=== PATIENT | female | born 1965 | race Caucasian/White ===

== ENCOUNTER 2017-01-16 09:14 | Outpatient (CLI) ==
[2015-05-28 07:59] VITALS: BMI 33.6
--- NOTE | 2017-01-16 10:49 | DI ---
Examination: Three radiographic images of the right hand. Comparison: Right wrist radiographs performed on 05/24/2014. Reason for study: Pain. FINDINGS: No acute fracture or dislocation. The joint spaces are well maintained. No abnormal sof t tissue calcifications or retained foreign bodies. Arthritic changes are noted in the DIP joints. Impression: No acute fracture or dislocation in the right hand.
== END 2017-01-16 09:15 | disposition home or self-care (01) ==
LOC: RAD 09:14
PROVIDERS: ATTEND Nurse Practitioner Family
DX: M79.641 Pain in right hand (principal); T14.90 Injury, unspecified

== ENCOUNTER 2017-01-23 11:43 | Outpatient (CLI) ==
[2015-05-28 07:59] VITALS: BMI 33.6
--- NOTE | 2017-01-23 15:32 | MRI ---
EXAM: MRI of the right hand without contrast COMPARISON: Right hand radiographs 01/16/2017. HISTORY: Pain and stiffness involving the third digit. TECHNIQUE: Multiplanar noncontrast MR images of the right hand were acquired using a 1.5 Melanie magn et. FINDINGS: Cystic degenerative changes involving the second through fifth metacarpal heads which are most pronounced at the level of the third and fourth metacarpal heads. Moderate degenerative diaz es of the interphalangeal joints most pronounced at the distal interphalangeal joints. Chronic-appe aring erosions at the level of the head of the third middle phalanx and radial aspect of the neck of the second middle phalanx. Small degenerative cyst within the lunate along the margin of the scapho lunate interval. Trace joint effusions at the level of the hand and carpus. No evidence of an acut e fracture or osteomyelitis. No evidence of significant reactive marrow edema. There is low-level subcutaneous edema circumferentially throughout the hand and fingers which is mos t extensive involving the third finger without a focal soft tissue ulcer or drainable fluid collecti on. Lobulated region of abnormal signal measuring 2.7 x 1.7 x 0.6 cm within the subcutaneous tissue s along the palmar aspect of the middle and distal phalanges of the fourth digit extending along the palmar aspect of the distal interphalangeal joint. This region is isointense relative to skeletal muscle on the T1W and T2W images. This may represent a fibrous tumor/fibromatosis. Giant cell tumor is a differential consideration. Gouty tophus could also be considered in the appropriate clinical setting. Excision with pathologic correlation is recommended. There is tenosynovitis involving the flexor tendons of the third digit most pronounced at the level of the metacarpophalangeal joint with inflammation of the overlying soft tissues. No full-thickness tendon tear or tendon retraction. There is no significant bow stringing of the tendons. IMPRESSION: 1. Subcutaneous edema throughout the hand and fingers most pronounced at the level of the third dig it. This is nonspecific but may represent cellulitis without a drainable fluid collection or focal soft tissue ulcer. 2. Degenerative changes of the hand and wrist with most severe changes at the interphalangeal joint s. Chronic-appearing erosions at the level of the second and third distal interphalangeal joints an d a process such as gout could be considered. 3. Lobulated soft tissue mass within the subcutaneous tissues along the palmar aspect of the distal fourth finger. This could represent gouty tophus in the appropriate clinical setting with differen tial considerations including fibrous neoplasm/fibromatosis or giant cell tumor of the tendon sheath . Correlation with clinical history in addition to definitive characterization with sampling and pa thologic correlation is recommended. 4. Tenosynovitis involving the flexor tendons of the third digit without a full-thickness tendon te ar or tendon retraction.
== END 2017-01-23 11:44 | disposition home or self-care (01) ==
LOC: RAD 11:43
PROVIDERS: ATTEND Nurse Practitioner Family
DX: M79.641 Pain in right hand (principal); M25.9 Joint disorder, unspecified

== ENCOUNTER 2017-06-06 10:52 | Emergency (ER) ==
[2017-06-06 10:56] VITALS: BP 152/92; TEMP 98.2; BMI 32.8
--- NOTE | 2017-06-06 11:07 | ED.PDOC ---
General ED Provider: Dr. SHARMAINE WATTS JR Chief Complaint: Urinary Problem Stated Complaint: URINATED THIS AM AND WAS PAINFUL, DRIBBLING, FREQUENTL AND URGENCY. [ End ]98.2 67 18 965 152/92 BACK AND HIPS- chronic back pain and scoliosis Time Seen by Physician: 11:06 Mode of Arrival: Walk-In Information Source: Patient Exam Limitations: No limitations Primary Care Provider: ANTOINETTE MONSIVAIS Nursing and Triage Documentation Reviewed and Agree: No Review of Systems - Review Of Systems Constitutional: Reports: No symptoms Eyes: Reports: No symptoms Ears, Nose, Mouth, Throat: Reports: No symptoms Respiratory: Reports: No symptoms Cardiac: Reports: No symptoms GI: Reports: No symptoms : Reports: Burning, Dysuria, Frequency Musculoskeletal: Reports: Back pain (chrinic) Skin: Reports: No symptoms Neurological: Reports: No symptoms Endocrine: Reports: No symptoms Hematologic/Lymphatic: Reports: No symptoms All Other Systems: Other Past Medical History - Past Medical History Endocrine: Reports: None Cardiovascular: Reports: None Respiratory: Reports: None Hematological: Reports: None Gastrointestinal: Reports: None Genitourinary: Reports: None Neuro/Psych: Reports: None Musculoskeletal: Reports: Back Pain Cancer: Reports: None Last Menstrual Period: NONE - Surgical History General Surgical History: Reports: Tubal ligation - Family History Family History: Reports: Unknown - Social History Smoking Status: Never smoker Hx Substance Use: No Alcohol Screening: None - Immunizations Tetanus Shot up to Date: No Physical Exam - Physical Exam Appearance: Well-appearing, Obese Ill-appearing: Mild Pain Distress: Mild Eyes: JADE, EOMI, Conjunctiva clear ENT: Ears normal, Nose normal, Oropharynx normal Neck: Supple Respiratory: Airway patent, Breath sounds clear, Breath sounds equal, Respirations nonlabored Cardiovascular: RRR, Pulses normal, No rub, No murmur GI/: Soft, Nontender, No masses, Bowel sounds normal, No Organomegaly Musculoskeletal: Normal strength, ROM intact, No edema, No calf tenderness Skin: Warm, Dry, Normal color Neurological: Sensation intact, Motor intact, Reflexes intact, Cranial nerves intact, Alert, Oriented Psychiatric: Affect appropriate, Mood appropriate Critical Care Note - Critical Care Note Total Time (mins): 0 Course - Course Orders, Labs, Meds: Lab Review 06/06/17 11:05 Urine Color Yellow Urine Clarity Cloudy Urine pH 6.0 Ur Specific [place] 1.025 Urine Protein 2+ Urine Glucose (UA) Negative Urine Ketones Negative Urine Blood 3+ Urine Nitrite Positive Urine Bilirubin Negative Urine Urobilinogen 0.2 Ur Leukocyte Esterase 2+ Urine Microscopic WBC Tntc Ur Squamous Epith Cells Not present Orders Category Date Time Status UA [URINALYSIS C & S IF INDICATED] Stat LAB 06/06/17 11:05 Completed URINE CULTURE Stat LAB 06/06/17 11:17 Received Vital Signs: Temp Pulse Resp BP Pulse Ox 06/06/17 10:52 98.2 F 67 18 152/92 H 96 Departure - Departure Time of Disposition: 11:38 Disposition: HOME SELF-CARE Discharge Problem: UTI (urinary tract infection) Instructions: Urinary Tract Infection in Women (ED) Condition: Good Pt referred to PMD for follow-up: Yes Additional Instructions: increase fluids need 10 to 12 eight ounce cups a day antibiotics until gone may use pyridium for pain return if ever over 101.0 Prescriptions: Nitrofurantoin Monohyd/M-Cryst [Macrobid] 100 mg PO BID #14 capsule Phenazopyridine HCl [Pyridium] 200 mg PO TID PRN #10 tablet PRN Reason: PAIN Allergies/Adverse Reactions: Allergies No Known Allergies Allergy (Verified 06/06/17 10:56) Home Medications: Ambulatory Orders Hydrocodone/Acetaminophen [Lortab 5-325 Mg Tablet] 1 each PO TID PRN 04/25/16 Tizanidine HCl 4 mg PO PRN PRN 01/16/17 Estradiol 1 mg PO DAILY 06/06/17 Nitrofurantoin Monohyd/M-Cryst [Macrobid] 100 mg PO BID #14 capsule 06/06/17 Phenazopyridine HCl [Pyridium] 200 mg PO TID PRN #10 tablet 06/06/17
[2017-06-06 11:15] LABS: BILIRUBIN,URINE Negative (NEGATIVE); KETONES,URINE Negative (NEGATIVE); LEUKOCYTE ESTERASE ,URINE 2+ (NEGATIVE); NITRITE,URINE Positive (NEGATIVE); PROTEIN,URINE 2+ (NEGATIVE); URINE, BLOOD 3+ (NEGATIVE)
[2017-06-06 11:16] LABS: ADD URINE MICROSCOPIC YES
== END 2017-06-06 12:08 | disposition home or self-care (01) ==
LOC: ED 10:52
DX: N39.0 Urinary tract infection, site not specified (principal)
CPT/HCPCS: 81001; 87086; 87186; 99283

== ENCOUNTER 2017-06-18 08:23 | Outpatient (CLI) ==
[2017-06-18 12:36] LABS: BASOPHILS % (AUTO) 0.7 % (0.0-3.0); EOSINOPHILS # (AUTO) 0.2 K/ul (0.0-0.7); EOSINOPHILS % (AUTO) 3.1 % (0.0-7.0); HEMATOCRIT 40.2 % (37.0-47.0); HEMOGLOBIN 13.8 g/dl (12.0-16.0); IMMATURE GRANULOCYTE % (AUTO) 0.3 % (0.0-5.0); LYMPHOCYTES # (AUTO) 2.2 K/uL (0.60-3.4); LYMPHOCYTES % (AUTO) 37.6 (10.0-50.0); MEAN CORPUSCULAR HGB CONC 34.3 (31.8-35.4); MEAN CORPUSCULAR VOLUME 90.3 fl (81.0-99.0); MONOCYTES # (AUTO) 0.5 K/uL (0.4-2.0); MONOCYTES % (AUTO) 8.1 (0-10); NEUTROPHILS # (AUTO) 2.9 K/ul (2.0-6.9); NEUTROPHILS % (AUTO) 50.2; PLATELET COUNT 167 10^3/uL (140-440); RED BLOOD COUNT 4.45 10^6/ul (4.20-5.40)
[2017-06-18 13:12] LABS: ALBUMIN 3.7 g/dL (3.4-5.0); CALCIUM 8.8 mg/dL (8.2-10.2); POTASSIUM 3.7 mmol/L (3.5-5.10)
[2017-06-18 13:13] LABS: ALBUMIN/GLOBULIN RATIO 1.19; ANION GAP 15.7; BILIRUBIN,TOTAL 0.72 mg/dL (0.00-1.20); BUN/CREATININE RATIO 16.21; CHOL/HDL RATIO 3.5 (4.5-5.5); CREATININE 0.74 mg/dL (0.60-1.30); TOTAL PROTEIN 6.8 g/dL (6.4-8.2)
== END 2017-06-18 08:24 | disposition home or self-care (01) ==
LOC: LAB 08:23
PROVIDERS: ATTEND Nurse Practitioner Family
DX: I10 Essential (primary) hypertension (principal); M25.552 Pain in left hip
CPT/HCPCS: 36415; 80053; 80061; 84443; 85025

== ENCOUNTER 2017-09-29 09:51 | Outpatient (CLI) ==
--- NOTE | 2017-09-29 12:32 | MRI ---
EXAM: MRI right hip without contrast COMPARISON: MRI of the lumbar spine 06/27/2014. Left hip radiographs 05/13/2014 without previous rad iographs of the right hip. HISTORY: Right hip pain. Thrown off a horse years ago without a recent injury. No history of hip s urgery provided. TECHNIQUE: Multiplanar noncontrast MR images of the pelvis/hips were acquired using a 1 1.2 Melanie ma gnet. Large field of view imaging was employed on the axial and coronal sequences with inclusion bot h right and left hips in the field of view with sagittal images obtained only through the right hip. FINDINGS: No recent radiographs of the pelvis/hips available for comparison and radiographic correla tion is recommended. There is mild marrow heterogeneity with confluent regions of inversion recovery hyperintense/T1 hypoi ntense signal which may represent nonspecific red marrow reconversion/hyperplasia. 1.0 x 0.8 cm T1 h ypointense/inversion recovery hypointense lesion within the lateral portion of the subtrochanteric le ft femur corresponding to a sclerotic lesion on previous left hip radiograph 05/13/2014 favoring a be nign bone island, unchanged. 0.8 x 0.6 cm sclerotic lesion within the proximal shaft/subtrochanteric portion of the right femur also favored represent a bone island. No previous radiographs of the rig ht hip are available. The hip joint spaces are preserved bilaterally with trace hip joint effusions. Mild hypertrophic degenerative changes of the pubic symphysis with moderate degenerative spurring a t the sacroiliac joints. No evidence of active sacroiliitis or ankylosis. No evidence of an acute f racture, osteomyelitis or osteonecrosis. There is mild left-sided greater trochanteric bursitis. Tendinosis and low grade partial tearing of the deep fibers of the common hamstring tendons at their ischial tuberosity attachments bilaterally w ithout a full-thickness tear or tendon retraction. There is a tampon in place. No soft tissue mass identified within the pelvis. Small amount of free fluid within the pelvis posteriorly. The sciatic nerves are unremarkable appearance throughout the v isualized course bilaterally. IMPRESSION: 1. No acute osseous injury. Mild marrow heterogeneity favoring nonspecific red marrow reconversion/ hyperplasia. Suspected bone islands within the proximal femurs bilaterally. Correlation with more r ecent radiographs of the pelvis/hip is recommended. 2. Degenerative changes of the pubic symphysis and sacroiliac joints. Minimal hip joint effusions b ilaterally. 3. Mild left-sided greater trochanteric bursitis. 4. Tendinosis and partial tearing of the hamstring tendons bilaterally. No full-thickness tendon te ar or tendon retraction.
== END 2017-09-29 09:52 | disposition home or self-care (01) ==
LOC: RAD 09:51
PROVIDERS: ATTEND Nurse Practitioner Family
DX: M25.551 Pain in right hip (principal); G89.29 Other chronic pain

== ENCOUNTER 2017-10-29 15:01 | Outpatient (CLI) ==
[2017-10-29 17:27] LABS: FLU INTERNAL QC INTERNAL QC VALID; RAPID FLU A NEGATIVE (NEGATIVE); RAPID FLU B NEGATIVE (NEGATIVE)
== END 2017-10-29 15:02 | disposition home or self-care (01) ==
LOC: LAB 15:01
PROVIDERS: ATTEND Nurse Practitioner Family
DX: J02.9 Acute pharyngitis, unspecified (principal); R05 Cough; R50.9 Fever, unspecified; R52 Pain, unspecified
CPT/HCPCS: 87651; 87804; 87880

== ENCOUNTER 2017-11-01 00:02 | Emergency (ER) ==
[2017-11-01 00:14] VITALS: TEMP 97.9; BMI 32.9
--- NOTE | 2017-11-01 00:32 | ED.PDOC ---
General ED Provider: Dr. DENNIS KEARNS Chief Complaint: Chest Pain Stated Complaint: Patient states that she started vomiting 4 hours ago. Since then has lower chest pain radiating to the bilaterally. Time Seen by Physician: 00:29 Mode of Arrival: Walk-In Information Source: Patient Exam Limitations: No limitations Primary Care Provider: ANTOINETTE MONSIVAIS Nursing and Triage Documentation Reviewed and Agree: Yes Review of Systems - Review Of Systems Constitutional: Reports: No symptoms Eyes: Reports: No symptoms Ears, Nose, Mouth, Throat: Reports: No symptoms Respiratory: Reports: No symptoms Cardiac: Reports: Chest pain GI: Reports: Abdominal pain : Reports: No symptoms Musculoskeletal: Reports: No symptoms Skin: Reports: No symptoms Neurological: Reports: Anxiety Endocrine: Reports: No symptoms Hematologic/Lymphatic: Reports: No symptoms All Other Systems: Reviewed and Negative Past Medical History - Past Medical History Endocrine: Reports: None Cardiovascular: Reports: None Respiratory: Reports: None Hematological: Reports: None Gastrointestinal: Reports: None Genitourinary: Reports: None Neuro/Psych: Reports: None Musculoskeletal: Reports: Back Pain Cancer: Reports: None Last Menstrual Period: 1 YEAR AGO - Surgical History General Surgical History: Reports: Tubal ligation - Family History Family History: Reports: Unknown - Social History Smoking Status: Never smoker Hx Substance Use: No Alcohol Screening: None - Immunizations Tetanus Shot up to Date: No Physical Exam - Physical Exam Appearance: Ill-appearing, No pain distress, Well-nourished Pain Distress: Moderate Eyes: JADE, EOMI, Conjunctiva clear ENT: Ears normal, Nose normal, Oropharynx normal Respiratory: Airway patent, Breath sounds clear, Breath sounds equal, Respirations nonlabored Cardiovascular: RRR, Pulses normal, No rub, No murmur GI/: Soft, Bowel sounds normal, No Organomegaly, Tender Musculoskeletal: Normal strength, ROM intact, No edema, No calf tenderness Skin: Warm, Dry, Normal color Neurological: Sensation intact, Motor intact, Reflexes intact, Cranial nerves intact, Alert, Oriented Psychiatric: Affect appropriate, Mood appropriate Interpretation - Radiology Interpretation Radiology Interpretation By: Radiologist Radiology Results: Negative Exam Interpreted: Portable CXR - Road Engineer Rate: Zen Rhythm: Sinus - EKG Interpretation Time of EKG #1: 00:25 Rate: Zen Rhythm: Sinus Ectopy: None [place]: NL ST Segment: Normal Re-Evaluation - Re-Evaluation Time of Re-Evaluation: 03:40 Status: Improved Vital Signs Stable: Yes Pain Level: almost gone Critical Care Note - Critical Care Note Total Time (mins): 0 Course - Course Hematology/Chemistry: 11/01/17 00:40 11/01/17 00:40 Orders, Labs, Meds: Lab Review 11/01/17 12 00:40 00:40 WBC 13.29 H RBC 5.04 Hgb 15.4 Hct 44.2 MCV 87.7 MCH 30.6 MCHC 34.8 RDW Coeff of Herman 12.5 Plt Count 212 Immature Gran % (Auto) 0.5 Neut % (Auto) 72.2 Lymph % (Auto) 19.5 [place] % (Auto) 7.1 Eos % (Auto) 0.5 Baso % (Auto) 0.2 Immature Gran # (Auto) 0.1 Neut # 9.6 H Lymph # 2.6 Maverick # 1.0 Eos # 0.1 Baso # 0.0 Sodium 142 Potassium 3.6 Chloride 105 Carbon Dioxide 26 Anion Gap 14.6 BUN 13 Creatinine 0.75 Estimated GFR (MDRD) 81.00 BUN/Creatinine Ratio 17.33 Glucose 120 H Calcium 9.5 Total Bilirubin 0.48 AST 12 L ALT 17 Alkaline Phosphatase 41 L Total Creatine Kinase 38 Troponin I 0.0130 Total Protein 7.0 Albumin 3.8 Globulin 3.2 Albumin/Globulin Ratio 1.19 Orders Category Date Time Status EKG-(ED ONLY) Stat CARDIO 11/01/17 00:27 Completed ED BRICK GRADER APPLIED .ONCE EMERGENCY 11/01/17 00:27 Active ED IV/MEDIPORT/POWERPORT .ONCE EMERGENCY 11/01/17 00:27 Active CBC W/ AUTO DIFF Stat LAB 11/01/17 00:40 Completed COMPREHENSIVE METABOLIC PANEL Stat LAB 11/01/17 00:40 Completed CREATINE KINASE Stat LAB 11/01/17 00:40 Completed TROPONIN I Stat LAB 11/01/17 00:40 Completed 0.9 % Sodium Chloride [Saline Flush] MEDS 11/01/17 00:27 Ordered 1 syr IVF PRN PRN Ondansetron HCl/Pf [Zofran 4 mg/2 ml] MEDS 11/01/17 00:45 Discontinued 4 mg IVP ONCE STA Sodium Chloride 0.9% [Sodium Chloride] 1,000 ml MEDS 11/01/17 00:45 Discontinued IV BOLUS CHEST, 1V AP ONLY Stat RADS 11/01/17 00:27 Taken Medications Generic Name Dose Route Start Last Admin Trade Name Freq PRN Reason Stop Dose Admin Sodium Chloride 1 syr 11/01/17 00:27 11/01/17 00:42 Saline Flush IVF 1 syr PRN PRN Administration To flush IV Discontinued Medications Generic Name Dose Route Start Last Admin Trade Name Freq PRN Reason Stop Dose Admin Sodium Chloride 1,000 mls @ 1,000 mls/hr 11/01/17 00:45 11/01/17 00:50 Sodium Chloride IV 11/01/17 01:44 1,000 mls/hr BOLUS STA Administration Ondansetron HCl 4 mg 11/01/17 00:45 11/01/17 00:52 Zofran 4 Mg/2 Ml IVP 11/01/17 00:46 4 mg ONCE STA Administration Vital Signs: Temp Pulse Resp BP Pulse Ox 11/01/17 00:03 97.9 F 71 20 159/101 H 97 CARLY Risk Score Age >/= 65: No >/= 3 CAD Risk Factors: No Known CAD (Stenosis >/= 50%): No ASA Use in Past 7 Days: No Severe Angina (>/= 2 episodes in 24 hours): No EKG ST Changes >/= 0.5mm: No Postive Cardiac Marker: No CARLY Total Score: 0 CARLY Risk Score: Risk Score Odds of by 30D 0 0.1 (0.1-0.2) 1 0.3 (0.2-0.3) 2 0.4 (0.3-0.5) 3 0.7 (0.6-0.9) 4 1.2 (1.0-1.5) 5 2.2 (1.9-2.6) 6 3.0 (2.5-3.6) 7 4.8 (3.8-6.1) Departure - Departure Time of Disposition: 03:58 Disposition: HOME SELF-CARE Discharge Problem: Non-cardiac chest pain Instructions: Thoracic Pain (ED) Condition: Fair Pt referred to PMD for follow-up: Yes Additional Instructions: Rest Push fluids Take Nausea medications as needed Follow up with PCP in 3 days Prescriptions: Dicyclomine HCl [Bentyl] 10 mg PO TID PRN #20 capsule PRN Reason: Abdominal Pain Ondansetron HCl [Zofran Tab] 4 mg PO Q8H PRN #14 tablet PRN Reason: Nausea / Vomiting Allergies/Adverse Reactions: Allergies No Known Allergies Allergy (Verified 11/01/17 00:14) Home Medications: Ambulatory Orders Hydrocodone/Acetaminophen [Lortab 5-325 Mg Tablet] 1 each PO TID PRN 04/25/16 Tizanidine HCl 4 mg PO PRN PRN 01/16/17 Estradiol 1 mg PO DAILY 06/06/17 Dicyclomine HCl [Bentyl] 10 mg PO TID PRN #20 capsule 11/01/17 Ondansetron HCl [Zofran Tab] 4 mg PO Q8H PRN #14 tablet 11/01/17 Disposition Discussed With: Patient, Family
[2017-11-01] MEDS ORDERED: SODIUM CHLORIDE 1,000 ML IV STA (00:45)
[2017-11-01] MEDS ORDERED: ZOFRAN 4 MG/2 ML IVP STA (00:45)
[2017-11-01 00:46] LABS: BASOPHILS % (AUTO) 0.2 % (0.0-3.0); EOSINOPHILS # (AUTO) 0.1 K/ul (0.0-0.7); EOSINOPHILS % (AUTO) 0.5 % (0.0-7.0); HEMATOCRIT 44.2 % (37.0-47.0); HEMOGLOBIN 15.4 g/dl (12.0-16.0); IMMATURE GRANULOCYTE % (AUTO) 0.5 % (0.0-5.0); LYMPHOCYTES # (AUTO) 2.6 K/uL (0.60-3.4); LYMPHOCYTES % (AUTO) 19.5 (10.0-50.0); MEAN CORPUSCULAR HEMOGLOBIN 30.6 pg (27.0-31.0); MEAN CORPUSCULAR HGB CONC 34.8 (31.8-35.4); MEAN CORPUSCULAR VOLUME 87.7 fl (81.0-99.0); MONOCYTES % (AUTO) 7.1 (0-10); NEUTROPHILS # (AUTO) 9.6 K/ul (2.0-6.9); NEUTROPHILS % (AUTO) 72.2; PLATELET COUNT 212 10^3/uL (140-440); RED BLOOD COUNT 5.04 10^6/ul (4.20-5.40); WHITE BLOOD COUNT 13.29 K/ul (4.6-10.2)
[2017-11-01 01:14] LABS: ALBUMIN 3.8 g/dL (3.4-5.0); ALBUMIN/GLOBULIN RATIO 1.19; ANION GAP 14.6; BILIRUBIN,TOTAL 0.48 mg/dL (0.00-1.20); CALCIUM 9.5 mg/dL (8.2-10.2); POTASSIUM 3.6 mmol/L (3.5-5.10); TROPONIN I 0.013 ng/ml (0.0000-0.4000)
[2017-11-01 03:41] LABS: BUN/CREATININE RATIO 17.33; CREATININE 0.75 mg/dL (0.60-1.30)
[2017-11-01 04:07] VITALS: BP 111/59
--- NOTE | 2017-11-01 06:59 | DI ---
EXAM: Single view chest COMPARISON: None HISTORY: Chest pain FINDINGS: Lungs are clear with no lobar consolidation, failure, large effusion or significant atelec tasis. Cardiac and mediastinal silhouettes show no acute abnormality. No acute soft tissue or osseo us abnormalities. IMPRESSION: No active disease.
== END 2017-11-01 04:00 | disposition home or self-care (01) ==
LOC: ED 00:02
DX: R07.89 Other chest pain (principal); R11.10 Vomiting, unspecified; R10.9 Unspecified abdominal pain
CPT/HCPCS: 36415; 80053; 82550; 84484; 85025; 93005; 93010; 96361; 96374; 99283

== ENCOUNTER 2018-02-19 10:26 | Outpatient (CLI) ==
--- NOTE | 2018-02-19 11:41 | DI ---
EXAM: Right leg, two views, 02/19/2018 HISTORY: Injury. Initial encounter COMPARISON: None. FINDINGS / IMPRESSION: The visualized osseous structures appear intact. Anatomic alignment appears within normal limits. There is no evidence of fracture or dislocation. No acute osseous abnormality.
== END 2018-02-19 10:27 | disposition home or self-care (01) ==
LOC: RAD 10:26
PROVIDERS: ATTEND Nurse Practitioner Family
DX: S89.91XA Unspecified injury of right lower leg, initial encounter (principal); M79.662 Pain in left lower leg

== ENCOUNTER 2018-03-25 11:00 | Outpatient (RCR) ==
--- NOTE | 2018-03-24 08:37 | RS.OPPTEV2 ---
Date of Note: 03/22/18 Visit #: 1 Date of Evaluation: 03/22/18 Payer Source: Medicaid Surgery Performed?: No Treatment Diagnosis: Trochanteric bursitis B hips, B hip pain. History of Condition/Mechanism of Injury:: pt reports has had pain in B hips for approx 3 yrs. No definite injury. Prior Level of Function.....Patient was independent with: ADL's, Self Care, Caregiving, Ambulation/Mobility, Community Integration/Access Level of Function: pt reports she is unable to work due to B hip pain. Functional Limitations: Sleep, Self Care, ADL's, Squatting, Ambulation, Community Access/Integration Current Subjective/complaints:: pt states that she receives injections every 3 months in hip last one being 03/11/18. Reports she is unable to work due to pain. Treatment Side (optional): Bilateral *Precautions: n/a Medical History Medical History: Hypertension, Arthritis Surgical History Comments:: surgery to R hand Smoking Status: Never smoker Hx Home Medications: provera, tizadine, estradiol, diclofenac potassium, gabapentin, hydrocodone/acet. Patient's Goals: to decrease pain Pain Assessment - Pain Description Pain Location: B hips R worse than L Pain Description: Burning, Sharp, Aching Current Pain Intensity: 0 at rest increased to 4 with activity Functional Outcome Measure LE Functional Scale: 27 (66%) - G Codes & Severity Modifier G Codes & Modifier: n/a Source of G Code score: n/a Observation - Observation Posture: Forward Head, Rounded Shoulders Handedness: Right Gait - Gait Pattern General Gait Pattern Observation: Antalgic Gait, Short Stance Time (R) Gait Comments: pt amb with antalgic gait, with increased lat sway General Range of Motion: BUE WFL's. BLE WFL's with pain in B hips Muscle Strength: BUE 5/5,. BLE knee flex/ext 4+/5, ankle DF/PF 4+/5 Hip ROM: Bilaterally WFL's - Left Hip ROM Left Hip ROM Limitations: Soft Tissue Tightness, Pain, Muscle Weakness, Tightness on Left, Pain on Left - Right Hip ROM Right Hip ROM Limitations: Soft Tissue Tightness, Pain, Muscle Weakness, Tightness on Right, Pain on Right Comments: pt with tightness in IT band R worse than L, - Left Hip Strength Left Hip Flexion: 4+ Good + Left Hip Abduction: 4 Good - Right Hip Strength Right Hip Flexion: 4 Good Right Hip Abduction: 4- Good- - Special Test ANDREA Test: Positive Left, Positive Right Masood Test: Negative Left, Negative Right Palpation Palpation Findings: Tenderness (tenderness noted on B hips at greater trochanter R worse than L) Sensation - Sensation Right Upper Extremity: Intact/Normal Left Upper Extremity: Intact/Normal Right Lower Extremity: Intact/Normal Left Lower Extremity: Intact/Normal Balance - Sitting Balance Static Sitting Balance: Normal Dynamic Sitting Balance: Normal - Standing Balance Static Standing Balance: Normal Dynamic Standing Balance: Normal - Heat/Cryotherapy Treatment: Cryotherapy Comments:: R hip Interventions - Exercise/Activities/Manual Therapy Exercises/Activities: pt performed resisted hip abd with green tband, isometric hip add, hamstring stretch, IT band stretch, piriformis stretch Manual Therapy: n/a HOME EXERCISE PROGRAM: pt given written HEP including hamstring, piriformis and IT band stretch, isometric hip add, resisted hip abd - Charges Timed Code Treatment Minutes: 51 Total Treatment Time: 62 Procedures billed for this date of service:: eval low cold pack EVALUATION COMPLEXITY LEVEL EVALUATION COMPLEXITY LEVEL: HISTORY: Low (OA, HTN), EXAM OF BODY SYSTEMS: Medium (pain, ROM, strength, ), CLINICAL PRESENTATION: Low (stable), CLINICAL DECISION MAKING: Low Assessment Assessment: pt presents with trochanteric bursitis B hips with decreased strength, and balance as well as antalgic gait. 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 Goal #1: pt amb community distances without antalgic gait Goal to be met by: 04/16/18 Goal #2: decrease pain in B hips to <3 with activity Goal to be met by: 04/16/18 Goal #3: pt report increased ability to perform household duties with decreased pain Goal to be met by: 04/16/18 Goal #4: Improve LE functional index >40 Goal to be met by: 04/16/18 Plan - Treatment to be Provided Procedures: Therapeutic Exercises, Therapeutic Activity, Manual Therapy, Massage , Patient Education Modalities: Electrical Stimulation, Ultrasound/Phonophoresis, Class IV Laser, Cryotherapy, Hot Packs - Treatment Plan Frequency: 2 X week Duration: 4 weeks ORDER # VISITS AND/OR THROUGH DATE: 04/16/18 - Treatment Code (1) Bilateral hip pain Code(s): M25.551 - PAIN IN RIGHT HIP (2) Hamstring tightness of both lower extremities Code(s): M62.9 - DISORDER OF MUSCLE, UNSPECIFIED (3) Trochanteric bursitis, left hip Code(s): M70.62 - TROCHANTERIC BURSITIS, LEFT HIP (4) Trochanteric bursitis, right hip Code(s): M70.61 - TROCHANTERIC BURSITIS, RIGHT HIP
--- NOTE | 2018-03-25 11:19 | RS.OPPTDN ---
Subjective Date of Note: 03/25/18 Visit #: 2 Date of Evaluation: 03/22/18 Payer Source: Medicaid Treatment Diagnosis: Trochanteric bursitis B hips, B hip pain. Current Subjective/complaints:: Patient reports the injections have relieved her hip pain,but generally the R hip pain is twice as bad as the L hip . *Precautions: n/a Pain Assessment - Pain Description Pain Location: both trochanters Pain Description: Dull, Aching Current Pain Intensity: 0 Worst Pain Intensity: before injections the L hip averages 5/10,the R hip has been 10/10 - Treatment Patient Position: Supine - Heat/Cryotherapy Treatment: Cryotherapy (both hips x 10 mins.) Interventions - Exercise/Activities/Manual Therapy Exercises/Activities: 35 mins. total ,beginning with isometrics for hip abd/add using ball between knees.Hip abduction with green theraband.90/90 hamstring stretches,piriformis stretches; IT band stretches in supine and sidelying. Total minutes of Exercise: 35 Manual Therapy: n/a Total minutes of Manual Therapy: 0 HOME EXERCISE PROGRAM: pt given written HEP including hamstring, piriformis and IT band stretch, isometric hip add, resisted hip abd - Charges Timed Code Treatment Minutes: 35 Total Treatment Time: 45 Procedures billed for this date of service:: ex 2 , cp Assessment: Patient very attentive ,gives good return demo of each exercise.She has good bilateral hamstring extensibilty.She report slights increase in stretch discomfort with the IT band and piriformis stretches today. 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 PT to eliminate trochanteric pain ,resultng in normal gait pattern and ability for daily tasks.
== END 2018-03-29 23:59 ==
PROVIDERS: ATTEND Orthopaedic Surgery
DX: M70.62 Trochanteric bursitis, left hip (principal); M70.61 Trochanteric bursitis, right hip; M62.9 Disorder of muscle, unspecified

== ENCOUNTER 2018-06-24 07:58 | Outpatient (CLI) ==
[2018-02-19 10:31] VITALS: BMI 32.9
== END 2018-06-24 07:59 | disposition home or self-care (01) ==
LOC: LAB 07:58
PROVIDERS: ATTEND Nurse Practitioner Family
DX: I10 Essential (primary) hypertension (principal)
CPT/HCPCS: 36415; 80053; 80061; 84443; 85025

== ENCOUNTER 2018-09-06 11:11 | Emergency (ER) ==
[2018-09-06 11:17] VITALS: TEMP 96.9; BMI 31.8
[2018-09-06 11:31] VITALS: BP 170/77
--- NOTE | 2018-09-06 12:23 | ED.PDOC ---
General ED Provider: Dr. ANA ROBERTSON Chief Complaint: Extremity Pain/Injury Stated Complaint: Numbness R hand; pain R wrist and fingers Time Seen by Physician: 12:10 Mode of Arrival: Walk-In Information Source: Patient Exam Limitations: No limitations Primary Care Provider: ANTOINETTE MONSIVAIS Nursing and Triage Documentation Reviewed and Agree: Yes Does patient meet sepsis criteria?: No System Inflammatory Response Syndrome: Not Applicable Sepsis Protocol: For patient's 13 years and over: Temp is 96.8 and below OR 101 and greater Pulse >90 BPM Resp >20/minute Acutely Altered Mental Status Are patient's symptoms suggestive of a new infection, such as: -Pneumonia -Skin, Soft Tissue -Endocarditis -UTI -Bone, Joint Infection -Implantable Device -Acute Abdominal Infection -Wound Infection -Meningitis -Blood Stream Catheter Infection -Unknown Musculoskeletal Complaint Exam - Hand/Wrist Complaint/Exam Location of Pain: Reports: Right, Wrist, Digit #1, Digit #2, Digit #3, Digit #4 , Digit #5 Mechanism of Injury: Reports: Other (Repetative work movements - started new job recently. Off work weekend - better but still a problem) Onset/Duration: 1 week Symptoms Are: Still present Initial Severity: Mild Current Severity: Moderate Location: Reports: Diffuse (R forearm, wrist and digits R hand) Character: Reports: Aching (and tingling/numbness) Associated Signs and Symptoms: Reports: Weakness, Numbness (R hand, wrist and forearm) Review of Systems - Review Of Systems Constitutional: Reports: No symptoms Respiratory: Reports: No symptoms Cardiac: Reports: No symptoms Musculoskeletal: Reports: Muscle pain, Other (Numbness and tingling R hand/ digits) Skin: Reports: No symptoms Neurological: Reports: Tingling (R hand/digits) All Other Systems: Reviewed and Negative Past Medical History - Past Medical History Previously Healthy: Yes Endocrine: Reports: None Cardiovascular: Reports: None Respiratory: Reports: None Hematological: Reports: None Gastrointestinal: Reports: None Genitourinary: Reports: None Neuro/Psych: Reports: None Musculoskeletal: Reports: Back Pain Cancer: Reports: None Last Menstrual Period: menopause - Surgical History General Surgical History: Reports: Tubal ligation - Family History Family History: Reports: Unknown - Social History Smoking Status: Never smoker Hx Substance Use: No Alcohol Screening: None Physical Exam - Physical Exam Appearance: Well-appearing Pain Distress: Mild (R forearm, wrist and hand - mild while in position of comfort and not subject to movemen and stress) Musculoskeletal: Normal strength, ROM intact, No edema Skin: Warm, Dry, Normal color Neurological: Sensation intact, Motor intact, Alert, Oriented Psychiatric: Affect appropriate, Mood appropriate Critical Care Note - Critical Care Note Total Time (mins): 8 Course - Course Orders, Labs, Meds: Orders Category Date Time Status Splint [ED SPLINT APPLICATION] .ONCE EMERGENCY 09/06/18 12:25 Active Vital Signs: Temp Pulse Resp BP Pulse Ox 09/06/18 11:30 55 L 16 170/77 H 97 09/06/18 11:12 96.9 F L 63 16 170/137 H 96 Departure - Departure Time of Disposition: 12:25 Disposition: HOME SELF-CARE Discharge Problem: Strain of forearm, right Qualifiers: Encounter type: initial encounter Qualified Code(s): S56.911A - Strain of unspecified muscles, fascia and tendons at forearm level, right arm, initial encounter Instructions: Musculoskeletal Pain (ED) Condition: Stable Pt referred to PMD for follow-up: Yes (Call for appointment) IPMP verified?: No (No CS prescribed) Additional Instructions: Use sling to support R arm and limit movements for three days. Call primary care provider and make appointment. Use your usual medications Allergies/Adverse Reactions: Allergies No Known Allergies Allergy (Verified 09/06/18 11:19) Home Medications: Ambulatory Orders Hydrocodone/Acetaminophen [Lortab 5-325 Mg Tablet] 1 each PO TID PRN 04/25/16 Tizanidine HCl 4 mg PO PRN PRN 01/16/17 Estradiol 1 mg PO DAILY 06/06/17 Meloxicam [Mobic] 15 mg PO DAILY 09/06/18
== END 2018-09-06 12:50 | disposition home or self-care (01) ==
LOC: ED 11:11
DX: M25.541 Pain in joints of right hand (principal); R20.0 Anesthesia of skin; S56.911A Strain of unspecified muscles, fascia and tendons at forearm level, right arm, initial encounter
CPT/HCPCS: 99282

== ENCOUNTER 2019-03-25 11:00 | Outpatient (CLI) | END 2019-03-25 11:01 | disposition home or self-care (01) | LOC: RHC-LAB 11:00 | PROVIDERS: ATTEND Nurse Practitioner Family | DX: F41.9 Anxiety disorder, unspecified (principal); I10 Essential (primary) hypertension | CPT/HCPCS: 36415; 80053; 80061; 84443; 85025 ==

== ENCOUNTER 2019-07-07 08:00 | Outpatient (RCR) ==
--- NOTE | 2019-06-30 09:27 | RS.OPPTDN ---
Subjective Date of Note: 06/30/19 Visit #: 4 Number of visits approved by Insurance: pending Date of Evaluation: 06/20/19 Payer Source: Medicaid Treatment Diagnosis: Trochanteric bursitis B hips, B hip pain. Current Subjective/complaints:: Patient reports no hip pain this AM,is doing her HEP. *Precautions: n/a Pain Assessment - Pain Description Pain Location: hips Pain Description: Dull, Aching - Heat/Cryotherapy Treatment: Hot Pack (15 mins. prior to ex) Interventions - Exercise/Activities/Manual Therapy Exercises/Activities: 40 mins. total,including bilateral isometric hip abd / hip adduction , sidelying on L and R for clamshell motion,SLR,hip abduction with knee flex/ext simultaneously,then hip IR/ER with knee in full extension.3/ 5 each exercise. recommended to add to existing HEP. Total minutes of Exercise: 40 Manual Therapy: n/a Total minutes of Manual Therapy: 0 HOME EXERCISE PROGRAM: pt given written HEP including: hamstring stretch, IT band stretch, piriformis stretch, isometric hip add, resisted hip abd with green theraband - Charges Timed Code Treatment Minutes: 40 Total Treatment Time: 55 Procedures billed for this date of service:: hp,ex 3 Assessment: Patient progressing well,has increased strength in the Lateral aspect of each LE.She reports dull aching and fatigue after exercises today , but no sharp pain present.She is attentive and motivated to improve. Patient Education: Body/Joint mechanics, Home Exercise Program, Activity Modification, Education of Plan of Care Patient demonstrates compliance with HEP?: Yes Short Term Goals Goal #1: pt independent with initial HEP Goal to be met by: 07/08/19 Progress towards Goal:: Met Goal #2: pt report pain <3 with activity Goal to be met by: 07/08/19 (0 today) Progress towards Goal:: Partially Met (pain elevates slowly as the day progresses,but less intense) Goal #3: pt with decreased IT band and piriformis tightness Goal to be met by: 07/08/19 Progress towards Goal:: Met Senior Living Goals Goal #1: Pain in B hips to <2 with activity Goal to be met by: 07/22/19 Progress towards goal: Progressing Goal #2: pt amb community distances without antalgic gait Goal to be met by: 07/22/19 Progress towards goal: Met Goal #3: pt report increased ability to perform household duties with decreased pain Goal to be met by: 07/22/19 Progress towards goal: Progressing Goal #4: Improve LE functional index >30 Goal to be met by: 07/22/[address] Judge Goals: 07/22/19 Expiration date of current Insurance Approval:: pending PLAN: Cont. skilled PT to maximize strength in hips,eliminate pain.
--- NOTE | 2019-07-05 09:24 | RS.OPPTDN ---
Subjective Date of Note: 07/05/19 Visit #: 5 Number of visits approved by Insurance: pending Date of Evaluation: 06/20/19 Payer Source: Medicaid Treatment Diagnosis: Trochanteric bursitis B hips, B hip pain. Current Subjective/complaints:: Patient reports increased soreness ,since beginning the side-lying exercises.We discussed the soreness is to be expected , but do not push to the point of pain,she understands. *Precautions: n/a Pain Assessment - Pain Description Pain Location: both hips,R > L today Pain Description: Dull, Aching Current Pain Intensity: R hip 4-5 / 10 L hip aching only - Heat/Cryotherapy Treatment: Hot Pack (20 mins. prior to exercises) Interventions - Exercise/Activities/Manual Therapy Exercises/Activities: 40 mins. total,stretching in all directions for hip abd/ add,piriformis,hamstrings.Added standing IT band stretches. Total minutes of Exercise: 40 Manual Therapy: n/a Total minutes of Manual Therapy: 0 HOME EXERCISE PROGRAM: pt given written HEP including: hamstring stretch, IT band stretch, piriformis stretch, isometric hip add, resisted hip abd with green theraband - Charges Timed Code Treatment Minutes: 40 Total Treatment Time: 60 Procedures billed for this date of service:: hp,ex 3 Assessment: Continues to progress well,tolerates new exercises today,with good return demo.We discussed D/C plan after next session due to good progress.The R trochanter is tender to palpate today,recommended to use ice frequently when the tenderness is elevated. Patient Education: Education of diagnosis, Body/Joint mechanics, Home Exercise Program, Home Safety, Activity Modification, Education of Plan of Care Patient demonstrates compliance with HEP?: Yes Short Term Goals Goal #1: pt independent with initial HEP Goal to be met by: 07/08/19 Progress towards Goal:: Met Goal #2: pt report pain <3 with activity Goal to be met by: 07/08/19 (0 today) Progress towards Goal:: Partially Met (met on L) Goal #3: pt with decreased IT band and piriformis tightness Goal to be met by: 07/08/19 Progress towards Goal:: Met [facility] Goals Goal #1: Pain in B hips to <2 with activity Goal to be met by: 07/22/19 Progress towards goal: Progressing Goal #2: pt amb community distances without antalgic gait Goal to be met by: 07/22/19 Progress towards goal: Met Goal #3: pt report increased ability to perform household duties with decreased pain Goal to be met by: 07/22/19 Progress towards goal: Progressing Goal #4: Improve LE functional index >30 Goal to be met by: 07/22/19 Progress towards goal: Progressing Plan Dates of Director Of Residence [employer] Goals: 07/22/19 Expiration date of current Insurance Approval:: 07/22/19 PLAN: Cont. skilled PT to reduce/eliminate hip pain.
--- NOTE | 2019-07-07 08:41 | RS.QUICKDC ---
Discharge from PT Date of Discharge: 07/07/19 Number of Visits: 6 Reason for Discharge: Goals met.
--- NOTE | 2019-07-07 08:41 | RS.OPPTDN ---
Subjective Date of Note: 07/07/19 Visit #: 6 Number of visits approved by Insurance: pending Date of Evaluation: 06/20/19 Payer Source: Medicaid Treatment Diagnosis: Trochanteric bursitis B hips, B hip pain. Current Subjective/complaints:: Pleased with her progress,is doing her exercises ,feeling much better. *Precautions: n/a Pain Assessment - Pain Description Pain Location: both hips Pain Description: Dull, Aching Pain Description: minimal aching Current Pain Intensity: not rated - Heat/Cryotherapy Treatment: Hot Pack (20 mins. prior to ex) Interventions - Exercise/Activities/Manual Therapy Exercises/Activities: 40 mins. total,stretching in all directions for hip abd/ add,piriformis,hamstrings.Isometric hip abd/add.Reviewed HEP,joint protection, activity modification. Total minutes of Exercise: 40 Manual Therapy: n/a Total minutes of Manual Therapy: 0 HOME EXERCISE PROGRAM: pt given written HEP including: hamstring stretch, IT band stretch, piriformis stretch, isometric hip add, resisted hip abd with green theraband - Charges Timed Code Treatment Minutes: 40 Total Treatment Time: 60 Procedures billed for this date of service:: hp,ex 3 Assessment: Met all rehab goals ,good understanding of HEP and joint protection. 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
== END 2019-07-30 23:59 ==
PROVIDERS: ATTEND Orthopaedic Surgery
DX: M70.62 Trochanteric bursitis, left hip (principal); M70.61 Trochanteric bursitis, right hip